=== PATIENT | male | born 1970 | race African-American/Black ===

== ENCOUNTER → 2020-03-28 | Outpatient (CLI) | payer MEDICARE ==
[2020-03-28 15:12] LABS: HEMATOCRIT 47.1 % (39.0-53.0); HEMOGLOBIN 16.2 g/dL (13.0-17.5); MEAN CORPUSCULAR HEMOGLOBIN 31 pg (25-35); MEAN CORPUSCULAR HGB CONC 34 g/dL (31-37); MEAN CORPUSCULAR VOLUME 89 fL (79-100); RED BLOOD COUNT 5.32 x10^6/uL (4.30-5.70); RED CELL DISTRIBUTION WIDTH 13.2 % (11.5-14.5)
[2020-03-28 15:37] LABS: PLATELET COUNT 218 x10^3/uL (140-400)
[2020-03-28 15:43] LABS: % BASOS 1 % (0-3); % EOS 7 % (0-5); % LYMPHS 35 % (24-48); % MONOS 4 % (0-10); % SEGS 53 % (35-66); PLATELET CLUMP PRESENT; PLT ESTIMATE ADEQUATE (ADEQUATE)
[2020-03-30 13:35] LABS: WHITE BLOOD COUNT 5.2 x10^3/uL (4.0-11.0)
[2020-03-30 20:19] LABS: ANA INTERP Negative (.)
== END ==
LOC: ONCLAB 14:25
PROVIDERS: ATTEND Internal Medicine Hematology & Oncology
DX: D69.6 Thrombocytopenia, unspecified (principal)
CPT/HCPCS: 36415; 82607; 82746; 83010; 83615; 85007; 85025; 86038; 86703; 86803